=== PATIENT | male | born 1970 | race Caucasian/White ===

== ENCOUNTER 2016-08-07 19:32 | Emergency (ER) | payer OTHER, SELFPAY ==
[~2016-08-07] VITALS: Ht 172.7 cm; Wt 75.3 kg
[2016-08-07] MEDS ORDERED: TRIA37.53 PO (20:00)
[2016-08-07] MEDS ORDERED: LOSA50TA20 PO (20:00)
[2016-08-07] MEDS ORDERED: SIMV40TA2 PO (20:00)
[2016-08-07] MEDS ORDERED: ONDANSETRON 4 MG ORAL DISINTEGRATING TAB (S0181) PO ONE (21:00)
[2016-08-07] MEDS ORDERED: metroNIDAZOLE (FLAGYL) 500 MG TAB PO ONE (21:00)
[2016-08-07] MEDS ORDERED: CIPROFLOXACIN 500 MG TAB PO ONE (21:00)
[2016-08-07 21:30] LABS: BASO % 0.4 % (0.0-1.0); EOS # 0.1 K/mm3 (0.0-0.50); EOS % 1.1 % (0.0-3.0); LARGE UNSTAINED CELL # 0.1 K/mm3 (0.0-0.4); LARGE UNSTAINED CELL % 0.5 % (0.0-4.0); LYMPH # 0.7 K/mm3 (1.5-4.5); LYMPH % 6.3 % (24.0-44.0); MEAN CORPUSCULAR HEMOGLOBIN 27.2 pg (27.0-33.0); MEAN CORPUSCULAR HGB CONC 33.7 g/dl (32.0-36.5); MEAN CORPUSCULAR VOLUME 80.6 fl (80.0-96.0); MONO # 0.2 K/mm3 (0.0-0.8); MONO % 1.9 % (0.0-5.0); NEUTROPHILS # 10.2 K/mm3 (1.8-7.7); NEUTROPHILS % 89.8 % (36.0-66.0); PLATELET COUNT, AUTOMATED 207 k/mm3 (150-450); RED CELL DISTRIBUTION WIDTH 12.6 % (11.5-14.5); WHITE BLOOD COUNT 11.4 K/mm3 (4.0-10.0)
[2016-08-07 21:40] LABS: ALBUMIN 4.1 GM/DL (3.2-5.2); ALBUMIN/GLOBULIN RATIO 1.37 (1.00-1.93); ALKALINE PHOSPHATASE 53 U/L (45-117); ALT/SGPT 35 U/L (12-78); ANION GAP 9 MEQ/L (8-16); AST/SGOT 16 U/L (15-37); BILIRUBIN,DIRECT 0.1 MG/DL (0.0-0.2); BILIRUBIN,TOTAL 0.4 MG/DL (0.2-1.0); BLOOD UREA NITROGEN 23 MG/DL (7-18); CARBON DIOXIDE LEVEL 28 MEQ/L (21-32); CHLORIDE LEVEL 109 MEQ/L (98-107); CREATININE FOR GFR 1.11 MG/DL (0.70-1.30); GLOMERULAR FILTRATION RATE > 60.0 (>60); GLUCOSE, FASTING 131 MG/DL (70-105); POTASSIUM SERUM 3.9 MEQ/L (3.5-5.1); SODIUM LEVEL 146 MEQ/L (136-145); TOTAL PROTEIN 7.1 GM/DL (6.4-8.2)
[2016-08-07] MEDS ORDERED: CIPR500T89 PO ×2 (21:52→21:53)
[2016-08-07 21:53] VITALS: BP 137/73
[2016-08-07] MEDS ORDERED: FLAG500T PO (21:53)
[2016-08-07] MEDS ORDERED: ZOFR4TAB3 PO (21:53)
== END 2016-08-07 21:58 | disposition home or self-care (01) ==
LOC: M ED 20:41
DX: K57.32 Diverticulitis of large intestine without perforation or abscess without bleeding (principal); I10 Essential (primary) hypertension; R11.2 Nausea with vomiting, unspecified; E78.9 Disorder of lipoprotein metabolism, unspecified; Z79.899 Other long term (current) drug therapy; Z88.8 Allergy status to other drugs, medicaments and biological substances

== ENCOUNTER 2016-10-31 20:20 | Emergency (ER) | payer OTHER ==
[~2016-10-31] VITALS: Ht 172.7 cm; Wt 75.7 kg
[~2016-10-31 20:20] MED LIST: CIPR500T89 PO; FLAG500T PO; LOSA50TA20 PO; SIMV40TA2 PO; TRIA37.53 PO; ZOFR4TAB3 PO
[2016-10-31] MEDS ORDERED: NS 1,000 ML IV ONE (21:00)
[2016-10-31] MEDS ORDERED: MORPHINE 4 MG/ML 1ML SYRINGE IV ONE (21:00)
[2016-10-31] MEDS ORDERED: GASTROGRAFIN SOLUTION 30ML (Q9963) As Ordered ONE (21:16)
[2016-10-31] MEDS ORDERED: GASTROGRAFIN SOLUTION 30ML (Q9963) PO ONE ×2 (22:00)
[2016-10-31 22:02] LABS: MEAN CORPUSCULAR HEMOGLOBIN 27.6 pg (27.0-33.0); MEAN CORPUSCULAR HGB CONC 33.6 g/dl (32.0-36.5); MEAN CORPUSCULAR VOLUME 82.1 fl (80.0-96.0); PLATELET COUNT, AUTOMATED 210 k/mm3 (150-450); RED CELL DISTRIBUTION WIDTH 13.6 % (11.5-14.5); WHITE BLOOD COUNT 12.3 K/mm3 (4.0-10.0)
[2016-10-31 22:14] LABS: ALBUMIN 3.9 GM/DL (3.2-5.2); ALBUMIN/GLOBULIN RATIO 1.22 (1.00-1.93); ALKALINE PHOSPHATASE 58 U/L (45-117); ALT/SGPT 34 U/L (12-78); AMYLASE 63 U/L (25-115); ANION GAP 6 MEQ/L (8-16); AST/SGOT 15 U/L (15-37); BILIRUBIN,DIRECT 0.1 MG/DL (0.0-0.2); BILIRUBIN,TOTAL 0.3 MG/DL (0.2-1.0); BLOOD UREA NITROGEN 16 MG/DL (7-18); CALCIUM LEVEL 9.4 MG/DL (8.5-10.1); CARBON DIOXIDE LEVEL 31 MEQ/L (21-32); CHLORIDE LEVEL 104 MEQ/L (98-107); CREATININE FOR GFR 0.98 MG/DL (0.70-1.30); GLOMERULAR FILTRATION RATE > 60.0 (>60); GLUCOSE, FASTING 98 MG/DL (70-105); POTASSIUM SERUM 3.7 MEQ/L (3.5-5.1); SODIUM LEVEL 141 MEQ/L (136-145); TOTAL PROTEIN 7.1 GM/DL (6.4-8.2)
[2016-10-31 22:42] LABS: ANISOCYTOSIS 2+; BANDS 5 % (< 11); BASOPHILS 1 % (0-4); EOSINOPHILS 2 % (0-5)
--- NOTE | 2016-10-31 23:20 | REPUSA ---
CT of the abdomen and pelvis without contrast Clinical statement: Pain, left lower quadrant. Technique: Multiple axial CT images were obtained from the base of the lungs to the floor of the pelv is utilizing 5 mm axial slices after administration of oral contrast. Coronal and sagittal reconstru ctions were also obtained. Comparison: 05/14/2013. Findings: Chest: The visualized lung bases demonstrate minimal atelectasis bilaterally. Abdomen: The kidneys are normal in size bilaterally. There is no evidence of hydronephrosis or nephro lithiasis. The liver, spleen, pancreas, gallbladder and adrenal glands are unremarkable. The aorta de monstrates normal caliber and contour. There is no abdominal lymphadenopathy or ascites. Pelvis: Moderate amount of stool fills the colon. There is focal bowel wall thickening and inflammati on in the sigmoid colon, consistent with acute sigmoid diverticulitis. Significant mesenteric inflamm atory changes are noted. There is no evidence of abscess or perforation. There is no bowel obstructio n. The appendix is normal. The urinary bladder is within normal limits. There is no pelvic lymphadeno oliverio or ascites. The other pelvic structures appear unremarkable. Bones: There are no suspicious osseous abnormalities seen. There is mild degenerative disc disease at L5/S1. Impression: 1. Moderately severe acute sigmoid diverticulitis. No evidence of abscess or perforation. 2. Moderate constipation. No evidence of bowel obstruction. 3. No evidence of hydronephrosis or nephrolithiasis. 4. Minimal atelectasis in the lung bases bilaterally. 5. Mild degenerative disc disease at L5/S1.
[2016-10-31] MEDS ORDERED: metroNIDAZOLE 750 MG in APPROPRIATE DILUENT 1 EA IV ONE (23:30)
[2016-10-31] MEDS ORDERED: CIPR500T89 PO (23:41)
[2016-10-31] MEDS ORDERED: FLAG500T PO (23:42)
[2016-10-31] MEDS ORDERED: VICO5TAB16 PO (23:43)
[2016-10-31] MEDS ORDERED: CIPROFLOXACIN 400 MG in APPROPRIATE DILUENT 1 EA IV ONE (23:45)
[2016-10-31] MEDS ORDERED: NS 500 ML IV ONE (23:45)
[2016-11-01] MEDS ORDERED: MORPHINE 4 MG/ML 1ML SYRINGE IV ONE (02:15)
[2016-11-01 02:29] VITALS: BP 109/55
== END 2016-11-01 02:36 | disposition home or self-care (01) ==
LOC: M ED 21:11
DX: K57.30 Diverticulosis of large intestine without perforation or abscess without bleeding (principal); I10 Essential (primary) hypertension; E78.5 Hyperlipidemia, unspecified; Z79.899 Other long term (current) drug therapy; Z88.8 Allergy status to other drugs, medicaments and biological substances
CPT/HCPCS: 74176; 80048; 80076; 81001; 82150; 83690; 85025; 87086; 96361; 96365; 96366; 96374; 96376; 99283; J0744; Q9963

== ENCOUNTER 2017-09-26 20:14 | Emergency (ER) | payer OTHER ==
[2017-09-26] MEDS: NS 1,000 ML IV (21:45)
[2017-09-26] MEDS: GASTROGRAFIN SOLUTION 30ML PO ×2 (22:00→22:30)
[2017-09-26 22:12] LABS: BASO # 0.1 10^3/uL (0.0-0.2); BASO % 0.7 % (0.0-1.0); EOS # 0.2 10^3/uL (0.0-0.50); EOS % 2.4 % (0.0-3.0); HEMATOCRIT 40.4 % (42.0-52.0); HEMOGLOBIN 13.5 g/dl (13.5-17.5); IMMATURE GRANULOCYTE % 0.3 % (0-3.0); LYMPH # 1.6 10^3/uL (1.5-4.5); LYMPH % 17.4 % (24.0-44.0); MEAN CORPUSCULAR HEMOGLOBIN 27.2 pg (27.0-33.0); MEAN CORPUSCULAR HGB CONC 33.4 g/dl (32.0-36.5); MEAN CORPUSCULAR VOLUME 81.5 fl (80.0-96.0); MONO # 0.7 10^3/uL (0.0-0.8); MONO % 7.7 % (0.0-5.0); NEUTROPHILS # 6.4 10^3/uL (1.8-7.7); NEUTROPHILS % 71.5 % (36.0-66.0); PLATELET COUNT, AUTOMATED 231 10^3/uL (150-450); RED BLOOD COUNT 4.96 10^6/uL (4.30-6.10); RED CELL DISTRIBUTION WIDTH 12.7 % (11.5-14.5)
[2017-09-26 22:21] LABS: KETONE, URINE AUTO RFX NEGATIVE (NEGATIVE); LEUKOCYTE ESTERASE UR AUTO RFX NEGATIVE (NEGATIVE); NITRITE, URINE AUTO RFX NEGATIVE (NEGATIVE); RBC, URINE AUTO RFX 0 /HPF (0-3); SPECIFIC GRAVITY UR AUTO RFX 1.014 (1.002-1.035); SQUAM EPITHELIAL CELL UR AURFX 0 /HPF (0-6); WBC, URINE AUTO RFX 0 /HPF (0-3)
[2017-09-26 22:35] LABS: ALBUMIN 3.8 GM/DL (3.2-5.2); ALBUMIN/GLOBULIN RATIO 1.09 (1.00-1.93); ALKALINE PHOSPHATASE 62 U/L (45-117); ALT/SGPT 42 U/L (12-78); AMYLASE 57 U/L (25-115); ANION GAP 7 MEQ/L (8-16); AST/SGOT 20 U/L (7-37); BILIRUBIN,DIRECT 0.1 MG/DL (0.0-0.2); BILIRUBIN,TOTAL 0.5 MG/DL (0.2-1.0); BLOOD UREA NITROGEN 15 MG/DL (7-18); CALCIUM LEVEL 8.7 MG/DL (8.5-10.1); CARBON DIOXIDE LEVEL 27 MEQ/L (21-32); CHLORIDE LEVEL 106 MEQ/L (98-107); CREATININE FOR GFR 1.04 MG/DL (0.70-1.30); GLOMERULAR FILTRATION RATE > 60.0 (>60); GLUCOSE, FASTING 95 MG/DL (70-100); LIPASE 49 U/L (73-393); SODIUM LEVEL 140 MEQ/L (136-145); TOTAL PROTEIN 7.3 GM/DL (6.4-8.2)
[2017-09-26] MEDS ORDERED: ISOVUE-370 76% 100ML VIAL (Q9967) As Ordered (22:50)
[2017-09-27] MEDS: metroNIDAZOLE (FLAGYL) 500 MG TAB PO (00:08)
[2017-09-27] MEDS: CIPROFLOXACIN 500 MG TAB PO (00:08)
== END 2017-09-27 00:18 | disposition home or self-care (01) ==
LOC: M ED 09-27 00:18
DX: K57.92 Diverticulitis of intestine, part unspecified, without perforation or abscess without bleeding (principal); Z88.8 Allergy status to other drugs, medicaments and biological substances; Z79.899 Other long term (current) drug therapy
CPT/HCPCS: Q9963

== ENCOUNTER → 2020-03-13 | Outpatient (CLI) | payer OTHER ==
[~2020-03-13] MED LIST changes: +CIPR-249 PO; -CIPR500T89 PO; -LOSA50TA20 PO; +LOSA50TA88 PO; +METR-265 PO; -SIMV40TA2 PO; +SIMV40TA20 PO; +VICO5TAB17 PO; +ZOFR4TAB14 PO; -ZOFR4TAB3 PO
== END ==
LOC: M LABSMTC 11:56
PROVIDERS: ATTEND Anesthesiology
DX: Z01.812 Encounter for preprocedural laboratory examination (principal); Z20.828 Contact with and (suspected) exposure to other viral communicable diseases
CPT/HCPCS: C9803; U0003

== ENCOUNTER 2020-03-18 08:54 | Day surgery (SDC) | payer OTHER ==
[~2020-03-18] VITALS: Ht 172.7 cm; Wt 78.2 kg
[~2020-03-18 08:54] MED LIST changes: +LIDOCAINE 2% 100MG/5ML SDV (FOR ANES.) As Ordered ONE; +NS 1,000 ML IV ONE; +propofoL 200 MG/20 ML VIAL As Ordered ONE
--- NOTE | 2020-03-18 10:29 | ROOR ---
Patient Name: Jaxon Pineda Procedure Date: 03/18/2020 10:08 AM Date of : 1970 Age: 49 Room: [facility] Gender: Male Note Status: Finalized Procedure: Total Colonoscopy to Cecum Indications: Screening for colorectal malignant neoplasm Providers: Zhou Dalton MD Referring MD: Ananda Gutierrez Requesting Provider: Medicines: Monitored Anesthesia Care Complications: No immediate complications. Procedure: Pre-Anesthesia Assessment: - The heart rate, respiratory rate, oxygen saturations, blood pressure, adequacy of pulmonary ventilation, and response to care were monitored throughout the procedure. The Colonoscope was introduced through the anus and advanced to the cecum, identified by appendiceal orifice and ileocecal valve. The colonoscopy was performed without difficulty. The patient tolerated the procedure well. The quality of the bowel preparation was excellent. Findings: The perianal and digital rectal examinations were normal. Non-bleeding internal hemorrhoids were found during retroflexion. The hemorrhoids were small and Grade I (internal hemorrhoids that do not prolapse). Multiple small and large-mouthed diverticula were found in the recto-sigmoid colon, sigmoid colon and descending colon. The exam was otherwise without abnormality on direct and retroflexion views. Impression: - Non-bleeding internal hemorrhoids. - Diverticulosis in the recto-sigmoid colon, in the sigmoid colon and in the descending colon. - The examination was otherwise normal on direct and retroflexion views. - No specimens collected. - The exam was otherwise normal to the cecum. Recommendation: - Patient has a contact number available for emergencies. The signs and symptoms of potential delayed complications were discussed with the patient. Return to normal activities tomorrow. Written discharge instructions were provided to the patient. - Discharge patient to home. - Continue present medications. - Repeat colonoscopy in 10 years for screening purposes. - Return to referring physician. - The findings and recommendations were discussed with the patient. Zhou Dalton MD Zhou Dalton MD 03/18/2020 10:28:26 AM Electronically signed by Zhou Dalton MD Number of Addenda: 0 Note Initiated On: 03/18/2020 10:08 AM Estimated Blood Loss: Estimated blood loss: none.
[2020-03-18 10:55] VITALS: BP 116/75
== END 2020-03-18 10:57 | disposition home or self-care (01) ==
LOC: M OPP 08:54
PROVIDERS: ATTEND Internal Medicine Gastroenterology
DX: Z12.11 Encounter for screening for malignant neoplasm of colon (principal); K64.0 First degree hemorrhoids; K57.30 Diverticulosis of large intestine without perforation or abscess without bleeding

== ENCOUNTER 2022-02-04 19:47 | Emergency (ER) | payer OTHER ==
[~2022-02-04] VITALS: Ht 172.7 cm; Wt 79.5 kg
[~2022-02-04 19:47] MED LIST changes: -LIDOCAINE 2% 100MG/5ML SDV (FOR ANES.) As Ordered ONE; +LOSA50TA28 PO; -LOSA50TA88 PO; -NS 1,000 ML IV ONE; -TRIA37.53 PO; +TRIA37.577 PO; -propofoL 200 MG/20 ML VIAL As Ordered ONE
[2022-02-04 20:23] LABS: BASO % 0.3 % (0.0-1.0); EOS # 0.3 10^3/uL (0.0-0.5); EOS % 3.5 % (0.0-3.0); HEMATOCRIT 40.1 % (42.0-52.0); HEMOGLOBIN 13.2 g/dl (13.5-17.5); LYMPH # 1.3 10^3/uL (1.5-5.0); LYMPH % 14.7 % (24.0-44.0); MEAN CORPUSCULAR HEMOGLOBIN 26.9 pg (27.0-33.0); MEAN CORPUSCULAR HGB CONC 32.9 g/dl (32.0-36.5); MEAN CORPUSCULAR VOLUME 81.7 fl (80.0-96.0); MONO # 0.6 10^3/uL (0.0-0.8); MONO % 6.7 % (2.0-8.0); NEUTROPHILS # 6.4 10^3/uL (1.5-8.5); NEUTROPHILS % 74.6 % (36.0-66.0); PLATELET COUNT, AUTOMATED 203 10^3/uL (150-450); RED BLOOD COUNT 4.91 10^6/uL (4.30-6.10); WHITE BLOOD COUNT 8.6 10^3/uL (4.0-10.0)
[2022-02-04] MEDS ORDERED: ACETAMINOPHEN 500 MG TAB PO ONE (21:05)
[2022-02-04] MEDS ORDERED: NS 1,000 ML IV ONE (21:05)
[2022-02-04 21:13] LABS: ALBUMIN 3.8 GM/DL (3.2-5.2); ALT/SGPT 25 U/L (12-78); BILIRUBIN,DIRECT 0.1 MG/DL (0.0-0.2); BILIRUBIN,TOTAL 0.5 MG/DL (0.2-1.0); BLOOD UREA NITROGEN 19 MG/DL (7-18); CALCIUM LEVEL 9.5 MG/DL (8.5-10.1); CARBON DIOXIDE LEVEL 26 MEQ/L (21-32); CHLORIDE LEVEL 105 MEQ/L (98-107); CREATININE FOR GFR 1.04 MG/DL (0.70-1.30); GLOMERULAR FILTRATION RATE > 60.0 (>56); GLUCOSE, FASTING 128 MG/DL (70-100); LIPASE 45 U/L (73-393); POTASSIUM SERUM 3.6 MEQ/L (3.5-5.1); SODIUM LEVEL 137 MEQ/L (136-145); TOTAL PROTEIN 6.9 GM/DL (6.4-8.2)
[2022-02-04] MEDS ORDERED: ISOVUE-370 76% 100ML VIAL As Ordered ONE (21:20)
[2022-02-04] MEDS ORDERED: CIPROFLOXACIN 400 MG in IV 1 EA IV ONE (21:35)
[2022-02-04] MEDS ORDERED: metroNIDAZOLE 500 MG in IV 1 EA IV ONE (21:35)
[2022-02-04 22:51] VITALS: BP 124/79
[2022-02-04] MEDS ORDERED: CIPR-249 PO (23:10)
[2022-02-04] MEDS ORDERED: METR-265 PO (23:10)
[2022-02-04] MEDS ORDERED: OXYC1TAB23 PO (23:17)
[2022-02-04] MEDS ORDERED: OXYCODONE/APAP 5MG/325MG(HOME DOSE PACK) PO ONE (23:20)
== END 2022-02-04 23:41 | disposition home or self-care (01) ==
LOC: M ED 19:47
DX: K57.32 Diverticulitis of large intestine without perforation or abscess without bleeding (principal); E86.0 Dehydration; I10 Essential (primary) hypertension; E78.5 Hyperlipidemia, unspecified; Z79.899 Other long term (current) drug therapy; Z88.8 Allergy status to other drugs, medicaments and biological substances
CPT/HCPCS: 74177; 80048; 80076; 83605; 83690; 85025; 87040; 96365; 96375; 99284; J0744; Q9967

== ENCOUNTER 2022-11-22 12:32 | Emergency (ER) | payer OTHER ==
[~2022-11-22] VITALS: Ht 172.7 cm; Wt 84.2 kg
[~2022-11-22 12:32] MED LIST changes: +OXYC1TAB23 PO
[2022-11-22] MEDS ORDERED: PROPARACAINE 0.5% OPHTH SOL 15ML OD ONE (14:40)
[2022-11-22] MEDS ORDERED: FLUORESCEIN OPHTH 1MG STRIP OD ONE (14:40)
[2022-11-22] MEDS ORDERED: VALT1TAB PO (15:15)
[2022-11-22 15:33] VITALS: BP 152/94; TEMP 98.3; O2SAT 97
== END 2022-11-22 15:39 | disposition home or self-care (01) ==
LOC: M ED 12:32
DX: B02.9 Zoster without complications (principal); I10 Essential (primary) hypertension; Z88.8 Allergy status to other drugs, medicaments and biological substances

== ENCOUNTER → 2024-02-16 | Outpatient (CLI) | payer OTHER ==
[~2024-02-16] MED LIST changes: +VALT1TAB PO
== END ==
LOC: M RAD 12:42
PROVIDERS: ATTEND Nurse Practitioner Family
DX: N50.89 Other specified disorders of the male genital organs (principal); N50.82 Scrotal pain